=== PATIENT | female | born 1935 | race Two or more races ===

== ENCOUNTER 2019-06-07 20:13 | Emergency (ER) | payer OTHER ==
[~2019-06-07] VITALS: Ht 157.5 cm; Wt 79.4 kg
[2019-06-07] MEDS ORDERED: SODIUM CHLORIDE 0.9% 1,000 ML IV ONE (21:24)
[2019-06-07] MEDS ORDERED: ONDANSETRON HCL 4 MG/2 ML VIAL IV ONE (21:30)
[2019-06-07] MEDS ORDERED: KETOROLAC TROMETH 15 mg/ml 1ML VL IM ONE (21:30)
[2019-06-07] MEDS ORDERED: HYDROmorphone HCL 2 MG/ML VL IV ONE (21:30)
[2019-06-07 21:53] LABS: Basophils # (auto) 0.1 uL; Basophils % (auto) 1.2 % (0.0-2.0); Eosinophils # (auto) 0.1 uL; Hematocrit 33.3 % (36.0-46.0); Hemoglobin 11.5 g/dL (12.2-16.2); Lymphocytes # (auto) 1.7 uL; Lymphocytes % (auto) 22.5 % (10.0-50.0); Mean Corpuscular Hgb Conc. 34.4 g/dL (32.0-36.0); Mean Corpuscular Volume 90.1 fL (80.0-100.0); Monocytes # (auto) 0.6 uL; Monocytes % (auto) 8.3 % (0.0-12.0); Neutrophils # (auto) 4.9 uL; Platelet Count (auto) 302 10^3/uL (140-450); Red Cell Distribution Width 13.9 % (11.8-14.3); White Blood Cell 7.4 10^3/uL (4.4-10.8)
[2019-06-07 22:09] LABS: Urine Bacteria FEW /hpf (None Seen); Urine Blood Negative /uL (Negative); Urine WBC 5 /hpf (0 - 5)
[2019-06-07 22:10] LABS: Partial Thromboplastin Time 28.5 sec (23.64-32.05)
[2019-06-07 22:15] LABS: Albumin 3.4 g/dL (3.4-5.0); Calcium 8.9 mg/dL (8.5-10.1); Magnesium 1.9 mg/dL (1.6-2.6); Potassium 3.7 mmol/L (3.5-5.1)
[2019-06-07 22:19] LABS: BUN/Creatinine Ratio 21.9; Bilirubin, Total 0.4 mg/dL (0.2-1.0); Total Protein 6.9 g/dL (6.4-8.2)
[2019-06-07] MEDS ORDERED: predniSONE 20 MG TAB PO ONE (23:15)
[2019-06-07 23:52] VITALS: BP 128/60
== END 2019-06-08 00:05 | disposition home or self-care (01) ==
LOC: EDBD 20:13 → ER 20:22
DX: M84.48XA Pathological fracture, other site, initial encounter for fracture (principal); M47.892 Other spondylosis, cervical region; G89.29 Other chronic pain; M17.12 Unilateral primary osteoarthritis, left knee; W18.30XA Fall on same level, unspecified, initial encounter; Y93.89 Activity, other specified; Y92.89 Other specified places as the place of occurrence of the external cause; Y99.8 Other external cause status
CPT/HCPCS: 36415; 73562; 73700; 74176; 80053; 81001; 82150; 83690; 83735; 85025; 85610; 85730; 93005; 96372; 96374; 96375; 99284; J1170; J1885; J2405; J7030; J7512